=== PATIENT | male | born 1995 | race Caucasian/White ===

== ENCOUNTER 2022-01-16 07:40 | Emergency (ER) | payer BC, SELFPAY ==
--- NOTE | 2022-01-16 07:32 | ECG_ITS ---
APPROVED REPORT Exam: Resting ECG HR:86 bpm ECG Measurements Heart Rate 86 AXES GA 134 P 14 QRSd 89 QRS 31 QT 331 T -1 QTc 374 Conclusion SINUS RHYTHM NORMAL ECG UNCONFIRMED REPORT Electronically signed by : Louie Alvarado MD 01/16/2022 19:59:44
[2022-01-16 07:40] VITALS: BP 125/90; PULSE 87; RESP 18; TEMP 36.5; O2SAT 99; BMI 35.4
--- NOTE | 2022-01-16 07:55 | XR_ITS ---
FINAL REPORT CLINICAL HISTORY: fluttering in chest FINDINGS: The heart size is normal. The mediastinum is normal. There is no focal infiltrate or edema. There are no pleural effusions. There is no pneumothorax. There is no osseous abnormality. IMPRESSION: No acute cardiopulmonary process Reviewed, Interpreted and Dictated by Roverto Stinson MD Transcribed by Fabricio Madrid Authenticated and [facility]
[2022-01-16 08:00] VITALS: BP 121/87; PULSE 78; RESP 16; O2SAT 97
--- NOTE | 2022-01-16 08:00 | [facility].EDGENADL ---
Discharge Plan Disposition Chief Complaint: PAIN Clinical Impressions Clinical Impression: Palpitations Instructions Patient Instructions: DI for Palpitations Discharge ED Provider: Sathish Lehman General Adult HPI General Chief complaint: PAIN Stated complaint: chest pain Time Seen by Provider: 01/16/22 08:00 Mode of Arrival: Ambulatory Source of Information: Patient Limitations: No Limitations Description of Symptoms (Recalled from ER Triage Doc. by RN): Pt reports for approx 6 months or more has had feeling of his heart fluttering . Pt reports symptoms has been more frequent in the past 2 months. Pt reports fluttering episodes feel worse if they happen when laying down. Pt denies SOA. Denies chest pain. History of Present Illness HPI narrative: Patient is a 26-year-old male who presents with concern for palpitations. He says that for the last 6 months he has had intermittent episodes where he can feel his heart fluttering. He says that it will happen in bunches and then seem to go away on its own. He does not have any chest pain when it happens. He just feels like something is catching. He denies any shortness of breath. Denies any recent illnesses. Denies any fever or chills. He says he has not seen anybody about this but he is try to get in with a new PCP. Denies any nausea or diaphoresis. Denies any abdominal pain. Denies any diarrhea. Related Data Allergies Allergy/AdvReac Type Severity Reaction Status Date / Time ceftriaxone [From Rocephin] Allergy Verified 01/16/22 07:54 erythromycin base Allergy Verified 01/16/22 07:54 prednisone Allergy Verified 01/16/22 07:54 PFS PFS Social History Smoking Status: Never smoker alcohol intake: current current occupational status: employed Travel in the last 8 weeks: None ROS Obtained: Yes All systems reviewed & no additional complaints except as documented A 14 point review of system was obtained and otherwise negative except per HPI Physical Exam General General appearance: alert and in no apparent distress Head Head exam: atraumatic, normocephalic and normal inspection Eye Eye exam: Present normal appearance, PERRL and EOMI ENT ENT exam: Present normal exam, normal oropharynx, mucous membranes moist, TM's normal bilaterally and normal external ear exam Neck Neck exam: Present normal inspection, full ROM and trachea midline; Absent meningismus or lymphadenopathy Chest Chest inspection: Present normal inspection and symmetric chest wall rise; Absent tenderness Respiratory Respiratory exam: Present normal lung sounds bilaterally; Absent respiratory distress Cardiovascular Cardiovascular exam: Present regular rate and normal rhythm; Absent JVD Abdominal Exam Abdominal exam: Present soft and normal bowel sounds; Absent distention, tenderness or guarding Extremities Exam Extremities exam: Present normal inspection, full ROM and normal capillary refill; Absent calf tenderness Back Exam Back exam: Present normal inspection; Absent tenderness Neurological Exam Neurological exam: Present alert and oriented X3 Psychiatric Psychiatric exam: Present normal affect and normal mood Skin Skin exam: Present warm, dry, intact and normal color Lymphatic Lymphatic Findings: no adenopathy Medical Decision Making Medical Records Medical records reviewed: Yes I reviewed the patient's medical records. Magdy Inquiry Pt receiving controlled substance: No Vital Signs: 01/16/22 07:40 Temperature 97.7 F Temperature Source Oral Pulse Rate [Apical] 87 Respiratory Rate 18 Blood Pressure [Right Arm] 125/90 Blood Pressure Mean [Right Arm] 101 Blood Pressure Source [Right Arm] Automatic Cuff Blood Pressure Position [Right Arm] Sitting 02 Sat by Pulse Oximetry 99 Oxygen Delivery Method Room Air Lab Data Lab Results 01/16/22 07:40: WBC 6.3, RBC 5.52, Hgb 15.5, Hct 46.4, MCV 84.0, MCH 28.1, MCHC 33.4, RDW 12.8, Plt Count 238, MPV 8.9, Omid
[2022-01-16 08:01] LABS: Basophils # 0.1 K/mm3 (0-0.2); Basophils % 1.2 % (0.1-2.0); Eosinophils # 0.1 K/mm3 (0.0-0.4); Eosinophils % 2.1 % (0.1-12.0); Hematocrit 46.4 % (42.0-52.0); Hemoglobin 15.5 g/dL (14.1-18.0); Lymphocytes # 2.2 K/mm3 (0.7-4.5); Lymphocytes % 34.2 % (10-50); Mean Corpuscular HGB Conc 33.4 g/dL (31.8-35.4); Mean Corpuscular Hemoglobin 28.1 pg (27.0-31.2); Mean Platelet Volume 8.9 fl (7.4-10.4); Monocytes # 0.3 K/mm3 (0.1-1.0); Monocytes % 5.4 % (1.7-9.3); Neutrophils # 3.6 K/mm3 (1.8-7.8); Neutrophils % 57.1 % (37.0-80.0); Platelet Count 238 K/mm3 (142-424); Red Blood Count 5.52 M/mm3 (4.60-6.20); Red Cell Distribution Width 12.8 % (11.5-17.5); White Blood Count 6.3 K/mm3 (4.8-10.8)
[2022-01-16 08:05] LABS: Anion Gap 14.2 mEq/L (5-15); Blood Urea Nitrogen 15 mg/dl (9-20); Calcium 9.9 mg/dl (8.4-10.2); Carbon Dioxide 30 mmol/L (22.0-30.0); Chloride 103 mmol/L (98-107); Creatinine Clearance Estimated 188 mL/min (50-200); Estimated Glomerular Filt Rate 100 ml/min (>60); GFR (African American) 122 ML/MIN (>60); Glucose 100 mg/dl (74-100); Potassium 4.2 mmoL/L (3.5-5.1); Sodium 143 mmol/L (136-145)
[2022-01-16 08:17] LABS: Troponin I < 0.01 ng/ml (0.00-0.034)
[2022-01-16 08:30] VITALS: BP 124/84; PULSE 81; RESP 16; O2SAT 95
[2022-01-16 08:47] VITALS: BP 124/84; PULSE 79; RESP 16; TEMP 36.5; O2SAT 96
== END 2022-01-16 08:47 | disposition home or self-care (01) ==
PROVIDERS: Emergency Provider Student in an Organized Health Care Education/Training Program; PCP Family Medicine
DX: R00.2 Palpitations (principal)
CPT/HCPCS: 71045; 80048; 84484; 85025; 93005; 99284

== ENCOUNTER → 2022-01-26 17:56 | Outpatient (CLI) | payer BC, SELFPAY | LOC: RT 17:57 | PROVIDERS: PCP Family Medicine; Visit Provider Family Medicine | DX: R00.2 Palpitations (principal) | CPT/HCPCS: 93225; 93226 ==